=== PATIENT | male | born 1970 | race African-American/Black ===

== ENCOUNTER 2017-09-05 03:36 | Emergency (ER) | payer OTHER ==
[~2017-09-05 03:36] MED LIST: ADVAI100I PO; ALBU6.7H INH; DOXY100T PO; DUONI NEB; IPRAAER IN; MEDR4PAK3 PO; PRED20 PO; SILV400T TOPICAL; SYMB80AE INH
[2017-09-05 03:41] VITALS: BP 140/99; PULSE 88; RESP 20; TEMP 97.5; O2SAT 92
--- NOTE | 2017-09-05 04:04 | PD ---
HPI Chief Complaint: Respiratory Symptoms Time Seen by Provider: 03:53 Travel History International Travel<30 days: No Contact w/Intl Traveler<30days: No Traveled to known affect area: No History of Present Illness HPI Patient is a 47-year-old male with a history of asthma presents emergency Department with persistent shortness of breath. Patient states she's just finished a course of steroids and has been taking his inhalers and albuterol home but thinks that he needs a little bit more help getting back to baseline. He states that he was a little bit behind the 8 ball when trying to come in last time. He denies any fever denies any sputum production but does endorse a dry cough. Denies any chest pain denies any abdominal pain nausea vomiting. He is able to speak in full sentences. Initial sat was in the high 80s in the waiting room. PFSH Past Medical History Asthma: Yes Autoimmune Disease: No Cancer: No Cardiovascular Problems: No COPD: No Diminished Hearing: No Endocrine: No Gastrointestinal Disorders: No Genitourinary: No Immune Disorder: No Implanted Vascular Access Dvce: No Musculoskeletal: No Neurologic: No Psychiatric: No Reproductive: No Respiratory: Yes Sleep Apnea: No ?: Not Past Surgical History Other Surgery: Yes (LEFT ARM SURGERY) Social History Alcohol Use: Yes (OCC) Tobacco Use: No Substance Use: No Allergies-Medications (Allergen,Severity, Reaction): Coded Allergies: sulfamethoxazole (Unverified Allergy, Severe, Rash, 05/25/17) trimethoprim (Unverified Allergy, Severe, Rash, 05/25/17) niacin (Unverified Allergy, Mild, RASH, 05/25/17) penicillin V (Unverified Allergy, Mild, ITCHING, 05/25/17) Reported Meds & Prescriptions Reported Meds & Active Scripts Active Prednisone 20 Mg Tab 20 Mg PO DIRECTED Take 60 MG daily x 4 days, then 40 MG x 4 days, then 20 MG daily x 4 days. Medrol Dosepak (Methylprednisolone) 4 Mg Prosper 4 Mg PO DIRECTED TAKE DIRECTED Doxycycline Hyclate 100 mg (Doxycycline Hyclate) 100 Mg Tab 100 Mg PO BID Symbicort (Budesonide/Formoterol Fumarate) 80 Mcg/4.5 Mcg Aer 2 Puff INH BID * SHAKE WELL BEFORE USE * Advair Diskus 100/50 (Salmeterol Xinafoate/Fluticasone) Fluticasone/Salmeterol 100/50 Inh 1 Puff PO BID Silvadene 400 Gm (Silver Sulfadiazine) 400 Applic/400 Gm Cr 1 Applic TOPICAL DAILY Deltasone 20 Mg Tab (Prednisone) 20 Mg Tab 40 Mg PO DAILY Take two tabs x 3 days Daily Then one tab x 3 days Daily Combivent Respimat (Albuterol/Ipratropium) Respimat Aer 1 Inhalation IN TID 30 Days Proventil Hfa (Albuterol Sulfate) 6.7 Gm Aero 2 Puff INH Q4H PRN * SHAKE WELL BEFORE USE * Reported Resp: Albuterol/Ipratropium 2.5 Mg/0.5 Mg (Albuterol/Ipratropium) 1 Amp Nebu 1 Ampule NEB Q6HR PRN Review of Systems Except as stated in HPI: all other systems reviewed are Neg Physical Exam Narrative GENERAL: Well-developed well-nourished no obvious distress SKIN: Focused skin assessment warm/dry. HEAD: Atraumatic. Normocephalic. EYES: Pupils equal and round. No scleral icterus. No injection or drainage. ENT: No nasal bleeding or discharge. Mucous membranes pink and moist. NECK: Trachea midline. No JVD. CARDIOVASCULAR: Mildly tachycardic with regular rhythm. No murmur appreciated. RESPIRATORY: Some accessory muscle use.. Inspiratory and expiratory wheezing and some mild scattered rhonchi.. Breath sounds equal bilaterally. GASTROINTESTINAL: Abdomen soft, non-tender, nondistended. Hepatic and splenic margins not palpable. MUSCULOSKELETAL: No obvious deformities. No clubbing. No cyanosis. No edema. NEUROLOGICAL: Awake and alert. No obvious cranial nerve deficits. Motor grossly within normal limits. Normal speech. PSYCHIATRIC: Appropriate mood and affect; insight and judgment normal. Data Data Last Documented VS Vital Signs Date Time Temp Pulse Resp B/P (MAP) Pulse Ox O2 Delivery O2 Flow Rate FiO2 09/05/17 05:24 09/05/17 03:42 28 09/05/17 03:41 97.5 88 92 Room Air Orders Orders Albuterol-Ipratropium Neb (Duoneb Neb) (09/05/17 04:15) Ed Discharge Order (09/05/17 05:17) MDM Medical Decision Making Medical Screen Exam Complete: Yes Emergency Medical Condition: Yes Differential Diagnosis pneumonia unlikely, asthma exacerbation, URI. Narrative Course Patient roomed emerged permit, recently finishing steroids and antibiotics for recent asthma exacerbation. He recently had a chest x-ray negative as well. Was given DuoNeb 3, remaining tachycardic but he is feeling much better. He has no histories of stasis, no signs of DVT. Clinically I think he has another reason for tachycardia and I highly doubt PE in this patient. This was discussed with him and he states he is feeling well enough to go home forgoing any additional workup. Discussed with him symptomatic management home, will place in a longer taper of prednisone. Discussed need follow-up with his primary care physician and return to ED criteria. Diagnosis Primary Impression: Asthma exacerbation Med/Other Pt SpecificInfo: Prescription(s) given Scripts Prednisone (Prednisone) 20 Mg Tab 20 MG PO DIRECTED, #24 TAB 0 Refills Take 60 MG daily x 4 days, then 40 MG x 4 days, then 20 MG daily x 4 days. Prov: Ramon Patel MD 09/05/17 Disposition: 01 DISCHARGE HOME Condition: Stable Ramon Patel MD Sep 05, 2017 04:04
[2017-09-05] MEDS ORDERED: RESP: ALBUTEROL 2.5 MG/IPRATROPIUM 0.5 MG NEB (SCH) NEB ONE (04:15)
[2017-09-05] MEDS ORDERED: PRED20 PO (05:17)
== END 2017-09-05 05:56 | disposition home or self-care (01) ==
LOC: NEPE 03:36
DX: J45.901 Unspecified asthma with (acute) exacerbation (principal)
CPT/HCPCS: 94640; 94664; 99283

== ENCOUNTER 2018-03-01 19:09 | Emergency (ER) | payer OTHER ==
[~2018-03-01] VITALS: Ht 190.5 cm; Wt 80.0 kg
[2018-03-01 19:31] VITALS: BP 165/128; PULSE 108; RESP 26; TEMP 98.1; O2SAT 92
[2018-03-01] MEDS ORDERED: predniSONE 20 MG TAB PO ONE (20:00)
[2018-03-01] MEDS ORDERED: SODIUM CHLORIDE 0.9% FLUSH 10 ML FLUSH IVF PRN (20:00)
[2018-03-01] MEDS: RESP: ALBUTEROL 2.5 MG/IPRATROPIUM 0.5 MG NEB (SCH) INH ×2 (20:11→20:12)
--- NOTE | 2018-03-01 20:11 | PD ---
HPI Chief Complaint: Respiratory Distress Time Seen by Provider: 19:53 Travel History International Travel<30 days: No Contact w/Intl Traveler<30days: No Traveled to known affect area: No History of Present Illness HPI 47-year-old black male with a history of asthma presents emergency department with complaints of shortness of breath and wheezing. He had been out of his medications recently fill them. He has been using his albuterol and Combivent without relief. He admits to shortness of breath, wheezing and general malaise. He is followed through the [facility]. No fever or chills. No nausea vomiting. No abdominal pain. No urinary symptoms. Symptoms are moderate. Worse by activity. No alleviating factor. PFSH Past Medical History Asthma: Yes Autoimmune Disease: No Cancer: No Cardiovascular Problems: No COPD: No Diminished Hearing: No Endocrine: No Gastrointestinal Disorders: No Genitourinary: No Immune Disorder: No Implanted Vascular Access Dvce: No Musculoskeletal: No Neurologic: No Psychiatric: No Reproductive: No Respiratory: Yes Sleep Apnea: No Tetanus Vaccination: < 5 Years Past Surgical History Narrative Surgical Left elbow fracture with ORIF, Other Surgery: Yes (LEFT ARM SURGERY) Social History Alcohol Use: Yes (OCC) Tobacco Use: No Substance Use: No Allergies-Medications (Allergen,Severity, Reaction): Coded Allergies: sulfamethoxazole (Unverified Allergy, Severe, Rash, 03/01/18) trimethoprim (Unverified Allergy, Severe, Rash, 03/01/18) niacin (Unverified Allergy, Mild, RASH, 03/01/18) penicillin V (Unverified Allergy, Mild, ITCHING, 03/01/18) Reported Meds & Prescriptions Reported Meds & Active Scripts Active Prednisone 20 Mg Tab 20 Mg PO DIRECTED Take 60 MG daily x 4 days, then 40 MG x 4 days, then 20 MG daily x 4 days. Medrol Dosepak (Methylprednisolone) 4 Mg Prosper 4 Mg PO DIRECTED TAKE DIRECTED Doxycycline Hyclate 100 mg (Doxycycline Hyclate) 100 Mg Tab 100 Mg PO BID Symbicort (Budesonide/Formoterol Fumarate) 80 Mcg/4.5 Mcg Aer 2 Puff INH BID * SHAKE WELL BEFORE USE * Advair Diskus 100/50 (Salmeterol Xinafoate/Fluticasone) Fluticasone/Salmeterol 100/50 Inh 1 Puff PO BID Silvadene 400 Gm (Silver Sulfadiazine) 400 Applic/400 Gm Cr 1 Applic TOPICAL DAILY Deltasone 20 Mg Tab (Prednisone) 20 Mg Tab 40 Mg PO DAILY Take two tabs x 3 days Daily Then one tab x 3 days Daily Combivent Respimat (Albuterol/Ipratropium) Respimat Aer 1 Inhalation IN TID 30 Days Proventil Hfa (Albuterol Sulfate) 6.7 Gm Aero 2 Puff INH Q4H PRN * SHAKE WELL BEFORE USE * Reported Resp: Albuterol/Ipratropium 2.5 Mg/0.5 Mg (Albuterol/Ipratropium) 1 Amp Nebu 1 Ampule NEB Q6HR PRN Review of Systems General / Constitutional: No: Fever Eyes: No: Visual changes HENT: No: Headaches Cardiovascular: No: Chest Pain or Discomfort, Palpitations Respiratory: Positive: Shortness of Breath, Wheezing, No: Sneezing, Pleuritic Pain Gastrointestinal: No: Abdominal Pain Genitourinary: No: Dysuria Musculoskeletal: No: Pain Skin: No Rash Neurologic: No: Weakness Psychiatric: No: Depression Endocrine: No: Polydipsia Hematologic/Lymphatic: No: Easy Bruising Physical Exam Narrative GENERAL: Well-developed, well-nourished in no acute distress. Nontoxic appearing. HEAD: Normocephalic, atraumatic. EYES: Pupils equal round and reactive. Extraocular motions intact. No scleral icterus. No injection or drainage. ENT: TMs clear without erythema. The external auditory canals clear. Nose: clear . Posterior pharynx is pink and moist. No tonsillar edema or exudate. Uvula midline. Airway patent. NECK: Trachea midline.Supple, nontender, moves head freely. No central bony tenderness or spasm. CARDIOVASCULAR: Regular rate and rhythm without murmurs, gallops, or rubs. RESPIRATORY: Diffuse expiratory wheezes. No rales. No rhonchi. GASTROINTESTINAL: Abdomen soft, non-tender, nondistended. No hepato-splenomegaly , or palpable masses. No guarding. EXTREMITIES: No clubbing, cyanosis, or edema. No joint tenderness, effusion, or edema noted. BACK: Nontender without deformity or crepitance. No flank tenderness. Data Data Last Documented VS Vital Signs Date Time Temp Pulse Resp B/P (MAP) Pulse Ox O2 Delivery O2 Flow Rate FiO2 03/01/18 20:37 97 Room Air 03/01/18 19:31 98.1 108 26 165/128 (140) Orders Orders Ecg Monitoring (03/01/18 19:58) Iv Access Insert/Monitor (03/01/18 19:58) Oximetry (03/01/18 19:58) Oxygen Administration (03/01/18 19:58) Prednisone (Deltasone) (03/01/18 20:00) Albuterol-Ipratropium Neb (Duoneb Neb) (03/01/18 20:00) Sodium Chloride 0.9% Flush (Ns Flush) (03/01/18 20:00) Ed Discharge Order (03/01/18 21:57) MDM Medical Decision Making Medical Screen Exam Complete: Yes Emergency Medical Condition: Yes Medical Record Reviewed: Yes Differential Diagnosis MDM: High Differential diagnoses: Pneumonia, bronchitis, URI, asthma, RAD, legionnaire's disease, SARS, ARDS, influenza, bronchiolitis, RSV,PE,CHF Narrative Course Patient is given 80 mg of prednisone p.o. and 3 additional nebs. Patient has been reexamined multiple times and has had slow improvement of his shortness of breath and wheezing. On his last exam his shortness of breath has completely resolved. He only has a few expiratory wheezes. The patient is considered medically stable for discharge. This is asthma exacerbation Diagnosis Primary Impression: Acute asthma exacerbation Patient Instructions: General Instructions Additional Instructions: Rest. Continue to use her inhalers. Prednisone. Recheck with your doctor in the next 3-5 days. Return to the ER for any problems. Med/Other Pt SpecificInfo: Prescription(s) given Scripts Prednisone (Deltasone) 20 Mg Tab 20 MG PO TID, #15 TAB 0 Refills Prov: Reginald Cazares MD 03/01/18 Disposition: 01 DISCHARGE HOME Condition: Stable Christoph Tian March 01, 2018 20:11
[2018-03-01] MEDS ORDERED: PRED-503 PO (21:58)
== END 2018-03-01 22:27 | disposition home or self-care (01) ==
LOC: NEPD 19:09
DX: J45.901 Unspecified asthma with (acute) exacerbation (principal); Z88.2 Allergy status to sulfonamides; Z88.0 Allergy status to penicillin; Z79.899 Other long term (current) drug therapy
CPT/HCPCS: 94640; 94664; 99283; J7512